=== PATIENT | female | born 1975 | race Two or more races ===

== ENCOUNTER 2018-01-30 20:46 | Emergency (ER) | payer SELFPAY ==
[~2018-01-30] VITALS: Ht 160 cm; Wt 65.0 kg
[2018-01-30] MEDS ORDERED: IBUPROFEN 600 MG TABLET PO ONE (21:30)
[2018-01-30] MEDS ORDERED: ACETAMINOPHEN 500 MG TABLET PO ONE (21:30)
[2018-01-30 21:31] LABS: BASOPHILS % (AUTO) 0.9 % (0.0-2.0); EOSINOPHILS % (AUTO) 0.4 % (1.0-6.0); HEMATOCRIT 36.9 % (36-46); HEMOGLOBIN 12.4 g/dL (12.0-16.0); LYMPHOCYTES # (AUTO) 0.9 K/uL (1.0-4.8); LYMPHOCYTES % (AUTO) 31.2 % (22.0-44.0); MEAN CORPUSCULAR HEMOGLOBIN 31.2 pg (26.0-34.0); MEAN CORPUSCULAR HGB CONC 33.6 G/dL (31.0-37.0); MEAN CORPUSCULAR VOLUME 93 fL (80-100); MONOCYTES # (AUTO) 0.5 K/uL (0.1-1.0); MONOCYTES % (AUTO) 15.5 % (2.0-9.0); NEUTROPHILS # (AUTO) 1.5 K/uL (1.8-7.7); RED BLOOD CELL COUNT(AUTO) 3.98 MIL/uL (4.00-5.20); RED CELL DISTRIBUTION WIDTH 15.9 % (11.5-14.5)
[2018-01-30 21:47] LABS: ANION GAP 17 mmol/L (8-16); CALCIUM, TOTAL 9.1 mg/dL (8.8-10.5); CARBON DIOXIDE 17 mmol/L (22-29); CHLORIDE 99 mmol/L (98-107); CREATININE 0.83 mg/dL (0.60-1.30); GLOMERULAR FILTR. RATE CALC > 60 mL/min (>60); GLUCOSE,RANDOM 90 mg/dL (70-110); POTASSIUM 3.2 mmol/L (3.5-5.1); SODIUM SERUM 133 mmol/L (136-145); UREA NITROGEN, BLOOD 4 mg/dL (7-18)
[2018-01-30 21:54] LABS: ALANINE AMINOTRANSFERASE 122 U/L (12-78); ALBUMIN 3.4 g/dL (3.4-5.0); ALKALINE PHOSPHATASE 163 U/L (46-116); ASPARTATE AMINOTRANSFERASE 229 U/L (15-37); BILIRUBIN,TOTAL 1.5 mg/dL (0.1-1.0)
[2018-01-30 22:05] LABS: PLATELET COUNT (AUTO) 101 K/uL (150-450)
[2018-01-30] MEDS ORDERED: POTASSIUM CHLORIDE 10% 40 MEQ/30 ML LIQUID UDCUP PO ONE (23:30)
[2018-01-31 03:26] VITALS: BP 137/84
[2018-02-02 10:53] LABS: GLUCOSE,POINT OF CARE 91 MG/DL (70-110)
== END 2018-01-31 04:28 | disposition home or self-care (01) ==
LOC: EDBD 20:48 → EDSEX 20:48 → EMS 20:48
DX: F10.229 Alcohol dependence with intoxication, unspecified (principal); K70.30 Alcoholic cirrhosis of liver without ascites; D61.818 Other pancytopenia; E87.6 Hypokalemia; E86.0 Dehydration; R53.1 Weakness; F17.210 Nicotine dependence, cigarettes, uncomplicated; Y90.6 Blood alcohol level of 120-199 mg/100 ml
CPT/HCPCS: 36415; 80053; 82962; 84703; 85025; 99284; 99406; G0480

== ENCOUNTER 2018-07-12 20:53 | Emergency (ER) | payer MEDICAID ==
[~2018-07-12] VITALS: Ht 165.1 cm; Wt 55.9 kg
[2018-07-13] MEDS ORDERED: MUPIROCIN CALCIUM 2% 22 GM OINTMENT TP ONE (04:45)
[2018-07-13 05:01] VITALS: BP 124/65
== END 2018-07-13 07:18 | disposition home or self-care (01) ==
LOC: EMS 20:54
DX: S00.01XA Abrasion of scalp, initial encounter (principal); M79.605 Pain in left leg; R32 Unspecified urinary incontinence; F17.210 Nicotine dependence, cigarettes, uncomplicated; F10.20 Alcohol dependence, uncomplicated; X58.XXXA Exposure to other specified factors, initial encounter; Y92.89 Other specified places as the place of occurrence of the external cause; Y93.89 Activity, other specified; Y99.8 Other external cause status

== ENCOUNTER 2018-09-19 23:16 | Emergency (ER) | payer MEDICAID, SELFPAY ==
[~2018-09-19] VITALS: Ht 162.6 cm; Wt 56.4 kg
[2018-09-20 00:26] LABS: BASOPHILS % (AUTO) 1.6 % (0.0-2.0); EOSINOPHILS % (AUTO) 0.6 % (1.0-6.0); HEMOGLOBIN 12.6 g/dL (12.0-16.0); LYMPHOCYTES # (AUTO) 1.1 K/uL (1.0-4.8); LYMPHOCYTES % (AUTO) 36.7 % (22.0-44.0); MEAN CORPUSCULAR HEMOGLOBIN 30.5 pg (26.0-34.0); MEAN CORPUSCULAR HGB CONC 33.2 G/dL (31.0-37.0); MEAN CORPUSCULAR VOLUME 92 fL (80-100); MONOCYTES # (AUTO) 0.4 K/uL (0.1-1.0); MONOCYTES % (AUTO) 12.5 % (2.0-9.0); NEUTROPHILS # (AUTO) 1.5 K/uL (1.8-7.7); NEUTROPHILS % (AUTO) 48.6 % (40.0-70.0); PLATELET COUNT (AUTO) 128 K/uL (150-450); RED BLOOD CELL COUNT(AUTO) 4.13 MIL/uL (4.00-5.20); RED CELL DISTRIBUTION WIDTH 15.3 % (11.5-14.5)
[2018-09-20 00:42] LABS: ANION GAP 15 mmol/L (8-16); CALCIUM, TOTAL 8.7 mg/dL (8.8-10.5); CARBON DIOXIDE 20 mmol/L (22-29); CHLORIDE 103 mmol/L (98-107); CREATININE 0.64 mg/dL (0.60-1.30); GLOMERULAR FILTR. RATE CALC > 60 mL/min (>60); GLUCOSE,RANDOM 100 mg/dL (70-110); POTASSIUM 3.3 mmol/L (3.5-5.1); SODIUM SERUM 138 mmol/L (136-145); UREA NITROGEN, BLOOD 6 mg/dL (7-18)
[2018-09-20 00:45] LABS: ALANINE AMINOTRANSFERASE 92 U/L (12-78); ALBUMIN 3.3 g/dL (3.4-5.0); ALKALINE PHOSPHATASE 164 U/L (46-116); ASPARTATE AMINOTRANSFERASE 133 U/L (15-37); BILIRUBIN,TOTAL 0.8 mg/dL (0.1-1.0); TOTAL PROTEIN, SERUM 9.1 g/dL (6.4-8.2)
[2018-09-20 04:31] VITALS: BP 132/84
== END 2018-09-20 04:30 | disposition home or self-care (01) ==
LOC: EMS 23:17
DX: F10.229 Alcohol dependence with intoxication, unspecified (principal); I25.2 Old myocardial infarction; F17.210 Nicotine dependence, cigarettes, uncomplicated; Y90.4 Blood alcohol level of 80-99 mg/100 ml
CPT/HCPCS: 36415; 80053; 85025; 99283; G0480

== ENCOUNTER 2018-11-26 10:25 | Emergency (ER) | payer MEDICAID ==
[~2018-11-26] VITALS: Ht 162.6 cm; Wt 56.0 kg
[2018-11-26] MEDS ORDERED: IBUPROFEN 400 MG TABLET PO ONE (10:45)
[2018-11-26 11:07] LABS: BASOPHILS % (AUTO) 1.2 % (0.0-2.0); EOSINOPHILS % (AUTO) 2.1 % (1.0-6.0); HEMATOCRIT 37.9 % (36-46); HEMOGLOBIN 12.6 g/dL (12.0-16.0); LYMPHOCYTES # (AUTO) 1.1 K/uL (1.0-4.8); LYMPHOCYTES % (AUTO) 34.6 % (22.0-44.0); MEAN CORPUSCULAR HEMOGLOBIN 29.8 pg (26.0-34.0); MEAN CORPUSCULAR HGB CONC 33.1 G/dL (31.0-37.0); MEAN CORPUSCULAR VOLUME 90 fL (80-100); MONOCYTES # (AUTO) 0.4 K/uL (0.1-1.0); MONOCYTES % (AUTO) 11.5 % (2.0-9.0); NEUTROPHILS # (AUTO) 1.7 K/uL (1.8-7.7); NEUTROPHILS % (AUTO) 50.6 % (40.0-70.0); PLATELET COUNT (AUTO) 112 K/uL (150-450); RED BLOOD CELL COUNT(AUTO) 4.21 MIL/uL (4.00-5.20)
[2018-11-26 11:13] LABS: ANION GAP 12 mmol/L (8-16); CALCIUM, TOTAL 9.1 mg/dL (8.8-10.5); CARBON DIOXIDE 24 mmol/L (22-29); CHLORIDE 101 mmol/L (98-107); CREATININE 0.61 mg/dL (0.60-1.30); GLOMERULAR FILTR. RATE CALC > 60 mL/min (>60); GLUCOSE,RANDOM 71 mg/dL (70-110); POTASSIUM 3.9 mmol/L (3.5-5.1); SODIUM SERUM 137 mmol/L (136-145); UREA NITROGEN, BLOOD 5 mg/dL (7-18)
[2018-11-26 11:37] LABS: ALANINE AMINOTRANSFERASE 89 U/L (12-78); ALBUMIN 3.3 g/dL (3.4-5.0); ALKALINE PHOSPHATASE 151 U/L (46-116); ASPARTATE AMINOTRANSFERASE 147 U/L (15-37); BILIRUBIN,TOTAL 1.3 mg/dL (0.1-1.0); HCG,QUANTITATIVE < 1 mIU/mL (0-6)
[2018-11-26 15:48] VITALS: BP 143/91
== END 2018-11-26 15:55 | disposition home or self-care (01) ==
LOC: EMS 10:25
DX: M87.852 Other osteonecrosis, left femur (principal); M25.552 Pain in left hip; F10.20 Alcohol dependence, uncomplicated; I25.2 Old myocardial infarction; M19.90 Unspecified osteoarthritis, unspecified site; F31.9 Bipolar disorder, unspecified; F17.210 Nicotine dependence, cigarettes, uncomplicated; Z59.0 Homelessness; Z85.3 Personal history of malignant neoplasm of breast; Y90.0 Blood alcohol level of less than 20 mg/100 ml
CPT/HCPCS: 36415; 73503; 80053; 84702; 85025; 99284; G0480

== ENCOUNTER 2018-11-28 09:36 | Emergency (ER) | payer SELFPAY ==
[~2018-11-28] VITALS: Ht 167.6 cm; Wt 56.8 kg
[2018-11-28] MEDS ORDERED: HYDROCODONE/ACETAMINOPHEN 5-325 MG TABLET PO ONE (10:15)
[2018-11-28] MEDS ORDERED: KETOROLAC TROMETHAMINE 30 MG/ML VIAL IM ONE (10:15)
[2018-11-28 12:00] VITALS: BP 111/67
== END 2018-11-28 12:30 | disposition home or self-care (01) ==
LOC: EMS 09:37
DX: M87.9 Osteonecrosis, unspecified (principal); M25.552 Pain in left hip; F31.9 Bipolar disorder, unspecified; F17.210 Nicotine dependence, cigarettes, uncomplicated; Z59.0 Homelessness
CPT/HCPCS: 96372; 99283; J1885

== ENCOUNTER 2019-02-21 01:55 | Emergency (ER) | payer MEDICAID ==
[~2019-02-21] VITALS: Ht 167.6 cm; Wt 61.0 kg
[2019-02-21] MEDS ORDERED: ACETAMINOPHEN 325 MG TABLET PO ONE (07:00)
[2019-02-21 07:36] LABS: EOSINOPHILS % (AUTO) 1.5 % (1.0-6.0); HEMATOCRIT 34.9 % (36-46); HEMOGLOBIN 11.4 g/dL (12.0-16.0); LYMPHOCYTES # (AUTO) 0.7 K/uL (1.0-4.8); LYMPHOCYTES % (AUTO) 26.3 % (22.0-44.0); MEAN CORPUSCULAR HEMOGLOBIN 30.9 pg (26.0-34.0); MEAN CORPUSCULAR HGB CONC 32.6 G/dL (31.0-37.0); MEAN CORPUSCULAR VOLUME 95 fL (80-100); MONOCYTES # (AUTO) 0.3 K/uL (0.1-1.0); MONOCYTES % (AUTO) 12.7 % (2.0-9.0); NEUTROPHILS # (AUTO) 1.6 K/uL (1.8-7.7); NEUTROPHILS % (AUTO) 58.5 % (40.0-70.0); PLATELET COUNT (AUTO) 105 K/uL (150-450); RED BLOOD CELL COUNT(AUTO) 3.67 MIL/uL (4.00-5.20); RED CELL DISTRIBUTION WIDTH 16.1 % (11.5-14.5)
[2019-02-21 07:45] LABS: ANION GAP 9 mmol/L (8-16); CALCIUM, TOTAL 8.6 mg/dL (8.8-10.5); CARBON DIOXIDE 23 mmol/L (22-29); CHLORIDE 101 mmol/L (98-107); CREATININE 0.66 mg/dL (0.60-1.30); GLOMERULAR FILTR. RATE CALC > 60 mL/min (>60); GLUCOSE,RANDOM 100 mg/dL (70-110); POTASSIUM 3.6 mmol/L (3.5-5.1); SODIUM SERUM 133 mmol/L (136-145); UREA NITROGEN, BLOOD 4 mg/dL (7-18)
[2019-02-21 07:51] LABS: ALANINE AMINOTRANSFERASE 100 U/L (12-78); ALKALINE PHOSPHATASE 135 U/L (46-116); ASPARTATE AMINOTRANSFERASE 151 U/L (15-37); BILIRUBIN,TOTAL 1.3 mg/dL (0.1-1.0); TOTAL PROTEIN, SERUM 8.2 g/dL (6.4-8.2)
[2019-02-21] MEDS ORDERED: IBUPROFEN 600 MG TABLET PO ONE (10:00)
[2019-02-28 16:32] VITALS: BP 134/74
== END 2019-02-21 15:02 | disposition home or self-care (01) ==
LOC: EMS 01:56
DX: M19.90 Unspecified osteoarthritis, unspecified site (principal); M79.641 Pain in right hand; M25.561 Pain in right knee; M25.562 Pain in left knee; I25.2 Old myocardial infarction; F31.9 Bipolar disorder, unspecified; F17.210 Nicotine dependence, cigarettes, uncomplicated; Z59.0 Homelessness; Y04.2XXA Assault by strike against or bumped into by another person, initial encounter; Y93.89 Activity, other specified; Y92.89 Other specified places as the place of occurrence of the external cause; Y99.8 Other external cause status
CPT/HCPCS: 36415; 73130; 73502; 73562 ×2; 80053; 85025; 99284; G0480

== ENCOUNTER 2019-05-02 20:03 | Emergency (ER) | payer SELFPAY ==
[~2019-05-02] VITALS: Ht 167.6 cm; Wt 67.1 kg
[2019-05-02] MEDS ORDERED: LIDOCAINE 1% 10 ML VIAL INJ ONE (20:15)
[2019-05-02] MEDS ORDERED: PERTUSS(ACELL),DIPH,TET VAC/PF 0.5 ML VIAL IM ONE (20:15)
[2019-05-02] MEDS ORDERED: BACITRACIN 0.9 GM PACKET OINTMENT TP ONE (21:00)
[2019-05-02 21:45] VITALS: BP 113/71
== END 2019-05-02 21:50 | disposition home or self-care (01) ==
LOC: EMS 20:04
DX: S81.811A Laceration without foreign body, right lower leg, initial encounter (principal); F31.9 Bipolar disorder, unspecified; I25.2 Old myocardial infarction; F17.210 Nicotine dependence, cigarettes, uncomplicated; Z59.0 Homelessness; W25.XXXA Contact with sharp glass, initial encounter; Y93.89 Activity, other specified; Y92.89 Other specified places as the place of occurrence of the external cause; Y99.8 Other external cause status
CPT/HCPCS: 12002; 90471; 90715; 99283; J3490

== ENCOUNTER 2019-05-06 13:27 | Emergency (ER) | payer SELFPAY ==
[~2019-05-06] VITALS: Ht 167.6 cm; Wt 60.0 kg
[2019-05-06 16:10] VITALS: BP 107/59
== END 2019-05-06 16:52 | disposition home or self-care (01) ==
LOC: EMS 13:27
DX: S81.811D Laceration without foreign body, right lower leg, subsequent encounter (principal); F31.9 Bipolar disorder, unspecified; I25.2 Old myocardial infarction; F17.210 Nicotine dependence, cigarettes, uncomplicated; Z59.0 Homelessness; X58.XXXD Exposure to other specified factors, subsequent encounter

== ENCOUNTER 2019-05-18 12:52 | Emergency (ER) | payer MEDICAID ==
[~2019-05-18] VITALS: Ht 167.6 cm; Wt 61.0 kg
[2019-05-18] MEDS ORDERED: CEPHALEXIN MONOHYDRATE 500 MG CAPSULE PO ONE (14:00)
[2019-05-18] MEDS ORDERED: BACITRACIN 0.9 GM PACKET OINTMENT TP ONE (14:00)
[2019-05-18 15:44] VITALS: BP 141/82
== END 2019-05-18 16:20 | disposition home or self-care (01) ==
LOC: EMS 12:54
DX: L03.115 Cellulitis of right lower limb (principal); R03.0 Elevated blood-pressure reading, without diagnosis of hypertension; I25.2 Old myocardial infarction; M19.90 Unspecified osteoarthritis, unspecified site; F31.9 Bipolar disorder, unspecified; F10.20 Alcohol dependence, uncomplicated; F17.210 Nicotine dependence, cigarettes, uncomplicated; Z59.0 Homelessness; Z85.3 Personal history of malignant neoplasm of breast

== ENCOUNTER 2019-08-09 22:42 | Inpatient (IN) | payer MEDICAID ==
[~2019-08-09] VITALS: Ht 162.6 cm; Wt 64.6 kg
[2019-08-10 00:35] LABS: EOSINOPHILS % (AUTO) 0.7 % (1.0-6.0); HEMATOCRIT 35.1 % (36-46); HEMOGLOBIN 11.6 g/dL (12.0-16.0); LYMPHOCYTES % (AUTO) 37.6 % (22.0-44.0); MEAN CORPUSCULAR HEMOGLOBIN 28.2 pg (26.0-34.0); MEAN CORPUSCULAR HGB CONC 32.9 G/dL (31.0-37.0); MEAN CORPUSCULAR VOLUME 86 fL (80-100); MONOCYTES # (AUTO) 0.4 K/uL (0.1-1.0); MONOCYTES % (AUTO) 15.6 % (2.0-9.0); NEUTROPHILS # (AUTO) 1.2 K/uL (1.8-7.7); NEUTROPHILS % (AUTO) 45.1 % (40.0-70.0); PLATELET COUNT (AUTO) 105 K/uL (150-450); RED CELL DISTRIBUTION WIDTH 17.8 % (11.5-14.5)
[2019-08-10 00:44] LABS: ANION GAP 14 mmol/L (8-16); CALCIUM, TOTAL 8.3 mg/dL (8.8-10.5); CARBON DIOXIDE 17 mmol/L (22-29); CHLORIDE 106 mmol/L (98-107); CREATININE 0.76 mg/dL (0.60-1.30); GLOMERULAR FILTR. RATE CALC > 60 mL/min (>60); GLUCOSE,RANDOM 112 mg/dL (70-110); POTASSIUM 3.2 mmol/L (3.5-5.1); SODIUM SERUM 137 mmol/L (136-145); UREA NITROGEN, BLOOD 5 mg/dL (7-18)
[2019-08-10 00:55] LABS: ALANINE AMINOTRANSFERASE 64 U/L (12-78); ALBUMIN 2.9 g/dL (3.4-5.0); ALKALINE PHOSPHATASE 158 U/L (46-116); ASPARTATE AMINOTRANSFERASE 103 U/L (15-37); BILIRUBIN,TOTAL 0.7 mg/dL (0.1-1.0); HCG,QUANTITATIVE < 1 mIU/mL (0-6); TOTAL PROTEIN, SERUM 8.6 g/dL (6.4-8.2)
[2019-08-10] MEDS ORDERED: HALOPERIDOL 5 MG TABLET PO ONE (03:00)
[2019-08-10] MEDS ORDERED: LORazepam 2 MG TABLET PO ONE (04:45)
[2019-08-10] MEDS ORDERED: POTASSIUM CHLORIDE 10% 40 MEQ/30 ML LIQUID UDCUP PO ONE (04:45)
[2019-08-10] MEDS ORDERED: ZOLPIDEM TARTRATE 10 MG TABLET PO PRN (08:15)
[2019-08-10] MEDS ORDERED: LORazepam 2 MG TABLET PO PRN (08:15)
[2019-08-10] MEDS ORDERED: OLANZapine 5 MG RAPDIS TABLET PO PRN (08:15)
[2019-08-10 09:11] VITALS: BP 118/77
[2019-08-10 09:38] VITALS: BP 118/77
[2019-08-10] MEDS ORDERED: INFLUENZA VIRUS VACCINE QVS 2019-20 (3YR+)/PF 60 MCG/0.5 ML SYRINGE IM ONE (11:15)
[2019-08-10] MEDS ORDERED: PETROLATUM,WHITE 28 GM JELLY TP PRN (12:15)
[2019-08-10] MEDS ORDERED: CloNIDine HCL 0.1 MG TABLET PO PRN (12:15)
[2019-08-10] MEDS ORDERED: ONDANSETRON HCL 4 MG TABLET PO PRN (12:15)
[2019-08-10] MEDS ORDERED: ACETAMINOPHEN 325 MG TABLET PO PRN (12:15)
[2019-08-10] MEDS ORDERED: IBUPROFEN 400 MG TABLET PO PRN (12:15)
[2019-08-10] MEDS ORDERED: LOPERAMIDE HCL 2 MG CAPSULE PO PRN (12:15)
[2019-08-10] MEDS ORDERED: NICOTINE 14 MG/24 HOUR PATCH TD PRN (12:15)
[2019-08-10] MEDS ORDERED: MAGNESIUM HYDROXIDE SUSPENSION 30 ML UDCUP PO PRN (12:15)
[2019-08-10] MEDS ORDERED: DOCUSATE SODIUM 100 MG CAPSULE PO PRN (12:15)
[2019-08-10] MEDS ORDERED: ALBUTEROL SULFATE HFA 90 MCG/PUFF 8 GM INHALER IH PRN (12:15)
[2019-08-10] MEDS ORDERED: MAG HYDROX/AL HYDROX/SIMETH ES 30 ML SUSPENSION UDCUP PO PRN (12:15)
[2019-08-10] MEDS ORDERED: GuaiFENesin/D-METHORPHAN [SUGAR-FREE] 200-20MG/10 ML SYRUP UDCUP PO PRN ×2 (12:15→14:45)
[2019-08-10] MEDS ORDERED: HydrOXYzine PAMOATE 50 MG CAPSULE PO PRN (14:45)
[2019-08-10] MEDS: THIAMINE HCL 100 MG TABLET PO SCH (17:21)
[2019-08-10] MEDS ORDERED: OLANZapine 5 MG RAPDIS TABLET PO SCH (21:00)
[2019-08-11 08:00] VITALS: BP 113/73
[2019-08-11] MEDS: THIAMINE HCL 100 MG TABLET PO SCH ×2 (09:15→17:42)
[2019-08-11] MEDS: FOLIC ACID 1 MG TABLET PO SCH (09:15)
[2019-08-11] MEDS: MULTIVITAMINS WITH MINERALS, THERAPEUTIC TABLET PO SCH (09:16)
[2019-08-11 14:54] LABS: BASOPHILS % (AUTO) 1.4 % (0.0-2.0); EOSINOPHILS % (AUTO) 3.3 % (1.0-6.0); HEMATOCRIT 31.9 % (36-46); HEMOGLOBIN 10.5 g/dL (12.0-16.0); LYMPHOCYTES % (AUTO) 45.6 % (22.0-44.0); MEAN CORPUSCULAR HEMOGLOBIN 28.1 pg (26.0-34.0); MEAN CORPUSCULAR HGB CONC 32.8 G/dL (31.0-37.0); MEAN CORPUSCULAR VOLUME 86 fL (80-100); MONOCYTES # (AUTO) 0.3 K/uL (0.1-1.0); MONOCYTES % (AUTO) 14.9 % (2.0-9.0); NEUTROPHILS # (AUTO) 0.8 K/uL (1.8-7.7); NEUTROPHILS % (AUTO) 34.8 % (40.0-70.0); PLATELET COUNT (AUTO) 100 K/uL (150-450); RED BLOOD CELL COUNT(AUTO) 3.72 MIL/uL (4.00-5.20); RED CELL DISTRIBUTION WIDTH 17.6 % (11.5-14.5)
[2019-08-11 16:20] VITALS: BP 113/66
[2019-08-11] MEDS: OLANZapine 10 MG RAPDIS TABLET PO SCH (20:54)
[2019-08-12 08:20] LABS: CHOL/HDL RATIO 1.7 (3.9-5.7); CHOLESTEROL 89 mg/dL (131-200); HDL CHOLESTEROL 52 mg/dL (40-60)
[2019-08-12] MEDS: DULoxetine HCL 20 MG CAPSULE PO SCH (08:29)
[2019-08-12] MEDS: MULTIVITAMINS WITH MINERALS, THERAPEUTIC TABLET PO SCH (08:29)
[2019-08-12] MEDS: FOLIC ACID 1 MG TABLET PO SCH (08:29)
[2019-08-12 08:30] LABS: LDL CHOL (CALC.) 34 mg/dL (0-130); TRIGLYCERIDES < 15 mg/dL (15-150)
[2019-08-12] MEDS: THIAMINE HCL 100 MG TABLET PO SCH ×2 (08:31→16:28)
[2019-08-12 08:45] VITALS: BP 112/68
[2019-08-12 08:54] LABS: AMPHET/METH SCREEN,URINE POSITIVE (NEGATIVE); BARBITURATE SCREEN, URINE NEGATIVE (NEGATIVE); BENZODIAZEPINES SCREEN,URINE NEGATIVE (NEGATIVE); CANNABINOID SCREEN,URINE NEGATIVE (NEGATIVE); COCAINE SCREEN,URINE NEGATIVE (NEGATIVE); METHADONE SCREEN, URINE NEGATIVE (NEGATIVE); OPIATE SCREEN,URINE NEGATIVE (NEGATIVE)
[2019-08-12 09:09] LABS: BILIRUBIN,URINE NEGATIVE (NEGATIVE); GLUCOSE, URINE (UA) NEGATIVE (NEGATIVE); KETONES,URINE NEGATIVE (NEGATIVE); LEUKOCYTE ESTERASE ,URINE LARGE (NEGATIVE); NITRATE,URINE NEGATIVE (NEGATIVE); PH,URINE 5.5 (5.0-8.0); PROTEIN,URINE NEGATIVE (NEGATIVE); UROBILINOGEN,URINE 0.2 mg/dL (<=1.0)
[2019-08-12 09:22] LABS: PHENCYCLIDINE SCREEN,URINE NEGATIVE (NEGATIVE)
[2019-08-12 09:31] LABS: OCCULT BLOOD,URINE SMALL (NEGATIVE)
[2019-08-12 09:32] LABS: APPEARANCE,URINE SLIGHTLY CLOUDY (CLEAR); BACTERIA,URINE Moderate /HPF (None Seen); SQUAMOUS EPITHELIAL CELL,UR Many /LPF (None Seen)
[2019-08-12 19:25] VITALS: BP 105/60
[2019-08-12] MEDS: OLANZapine 10 MG RAPDIS TABLET PO SCH (20:31)
[2019-08-13 08:47] VITALS: BP 104/67
[2019-08-13] MEDS: FOLIC ACID 1 MG TABLET PO SCH (09:30)
[2019-08-13] MEDS: DULoxetine HCL 20 MG CAPSULE PO SCH (09:30)
[2019-08-13] MEDS: MULTIVITAMINS WITH MINERALS, THERAPEUTIC TABLET PO SCH (09:30)
[2019-08-13] MEDS: THIAMINE HCL 100 MG TABLET PO SCH ×2 (09:30→16:21)
[2019-08-13 16:32] VITALS: BP 106/66
[2019-08-13] MEDS: OLANZapine 10 MG RAPDIS TABLET PO SCH (20:22)
[2019-08-14 00:53] VITALS: BP 113/65
[2019-08-14] MEDS: FOLIC ACID 1 MG TABLET PO SCH (08:58)
[2019-08-14] MEDS: MULTIVITAMINS WITH MINERALS, THERAPEUTIC TABLET PO SCH (08:58)
[2019-08-14] MEDS: THIAMINE HCL 100 MG TABLET PO SCH ×2 (08:58→16:22)
[2019-08-14] MEDS: DULoxetine HCL 20 MG CAPSULE PO SCH (08:58)
[2019-08-14 10:22] VITALS: BP 125/73
[2019-08-14 17:00] VITALS: BP 109/61
[2019-08-14] MEDS: OLANZapine 10 MG RAPDIS TABLET PO SCH (20:26)
[2019-08-15 08:52] VITALS: BP 109/71
[2019-08-15] MEDS: THIAMINE HCL 100 MG TABLET PO SCH ×2 (09:04→17:13)
[2019-08-15] MEDS: MULTIVITAMINS WITH MINERALS, THERAPEUTIC TABLET PO SCH (09:04)
[2019-08-15] MEDS: FOLIC ACID 1 MG TABLET PO SCH (09:04)
[2019-08-15] MEDS: DULoxetine HCL 20 MG CAPSULE PO SCH (09:04)
[2019-08-15 17:04] VITALS: BP 116/67
[2019-08-15] MEDS: OLANZapine 10 MG RAPDIS TABLET PO SCH (20:34)
[2019-08-16 08:52] VITALS: BP 100/69
[2019-08-16] MEDS: THIAMINE HCL 100 MG TABLET PO SCH ×2 (09:36→17:00)
[2019-08-16] MEDS: MULTIVITAMINS WITH MINERALS, THERAPEUTIC TABLET PO SCH (09:36)
[2019-08-16] MEDS: FOLIC ACID 1 MG TABLET PO SCH (09:36)
[2019-08-16] MEDS: DULoxetine HCL 20 MG CAPSULE PO SCH (09:36)
[2019-08-16 17:36] VITALS: BP 100/70
[2019-08-16] MEDS: OLANZapine 10 MG RAPDIS TABLET PO SCH (20:41)
[2019-08-17] MEDS: MULTIVITAMINS WITH MINERALS, THERAPEUTIC TABLET PO SCH (09:33)
[2019-08-17] MEDS: DULoxetine HCL 20 MG CAPSULE PO SCH (09:33)
[2019-08-17] MEDS: FOLIC ACID 1 MG TABLET PO SCH (09:34)
[2019-08-17] MEDS: THIAMINE HCL 100 MG TABLET PO SCH ×2 (09:34→17:27)
[2019-08-17 13:37] VITALS: BP 104/66
[2019-08-17 18:12] VITALS: BP 98/59
[2019-08-17] MEDS ORDERED: HALOPERIDOL 5 MG TABLET PO PRN (19:30)
[2019-08-17] MEDS ORDERED: HALOPERIDOL 10 MG TABLET PO SCH (21:00)
[2019-08-18] MEDS: MULTIVITAMINS WITH MINERALS, THERAPEUTIC TABLET PO SCH (09:24)
[2019-08-18] MEDS: DULoxetine HCL 20 MG CAPSULE PO SCH (09:24)
[2019-08-18] MEDS: FOLIC ACID 1 MG TABLET PO SCH (09:24)
[2019-08-18] MEDS: THIAMINE HCL 100 MG TABLET PO SCH ×2 (09:24→16:58)
[2019-08-18 09:29] VITALS: BP 107/61
[2019-08-18 19:04] VITALS: BP 120/67
[2019-08-18] MEDS ORDERED: HALOPERIDOL 10 MG TABLET PO SCH (21:00)
[2019-08-19] MEDS ORDERED: DULO20CA30 PO (08:03)
[2019-08-19] MEDS ORDERED: HALO10 PO (08:05)
[2019-08-19] MEDS ORDERED: FOLI1 PO (08:06)
[2019-08-19] MEDS ORDERED: IRON1TAB84 PO (08:08)
[2019-08-19] MEDS ORDERED: THIA1002I PO (08:09)
[2019-08-19] MEDS: FOLIC ACID 1 MG TABLET PO SCH (08:50)
[2019-08-19] MEDS: DULoxetine HCL 20 MG CAPSULE PO SCH (08:50)
[2019-08-19] MEDS: THIAMINE HCL 100 MG TABLET PO SCH (08:50)
[2019-08-19] MEDS: MULTIVITAMINS WITH MINERALS, THERAPEUTIC TABLET PO SCH (08:50)
[2019-08-19 09:17] VITALS: BP 122/78
== END 2019-08-19 11:15 | disposition home or self-care (01) | DRG 885 ==
LOC: EMS 22:44 → 3EI 08-10 08:36 → EDBD 08-10 08:36 → EMS 08-10 08:50 → 3EI 08-12 17:29
PROVIDERS: ADMIT Psychiatry & Neurology Psychiatry; ATTEND Psychiatry & Neurology Psychiatry
DX: F25.9 Schizoaffective disorder, unspecified (principal); N39.0 Urinary tract infection, site not specified; M19.90 Unspecified osteoarthritis, unspecified site; D64.9 Anemia, unspecified; D72.819 Decreased white blood cell count, unspecified; F10.10 Alcohol abuse, uncomplicated; Y90.9 Presence of alcohol in blood, level not specified; F19.10 Other psychoactive substance abuse, uncomplicated; E87.6 Hypokalemia; S93.401A Sprain of unspecified ligament of right ankle, initial encounter; Z91.19 Patient's noncompliance with other medical treatment and regimen; Z59.0 Homelessness; I25.2 Old myocardial infarction; X50.1XXA Overexertion from prolonged static or awkward postures, initial encounter; Z87.891 Personal history of nicotine dependence; Z85.3 Personal history of malignant neoplasm of breast; Z23 Encounter for immunization
CPT/HCPCS: 84132; 87086; 90686; G0480